=== PATIENT | male | born 1965 | race Caucasian/White ===

== ENCOUNTER → 2020-12-13 07:39 | Outpatient (CLI) | payer OTHER, SELFPAY ==
--- NOTE | ~2020-12-13 | US_ITS ---
EXAMINATION: US abdomen complete EXAM DATE: 12/13/2020 08:14 INDICATION: Acute abdominal pain. TECHNIQUE: Multiple grayscale and Doppler images of the complete abdomen were obtained (by a technolo gist who performed the scan) and subsequently reviewed. There is no prior study for comparison. FINDINGS: The abdominal aorta is normal in caliber. Visualized portion IVC is patent. The pancreatic head a nd body are normal in appearance. The pancreatic tail is not visualized. The liver has normal echogenicity and contour. There are no focal liver lesions identified. There is no evidence of intrahepatic biliary duct dilation. Portal venous flow was seen in the hepatopedal , normal direction and has normal Doppler waveform. Common bile duct measures 3 mm, which is normal. The gallbladder wall is normal in thickness, with ex pected amount of distention. No sonographic evidence of pericholecystic fluid. There is no cholelit hiases. Technologist performing exam reports patient did not demonstrate sonographic Clifford's sign. Please note that this sign is less reliable in patients who have received pain medication. Right kidney: There is normal contour and echogenicity. It measures 11.6 x 5.3 x 6.3 centimeters. There are no focal renal lesions identified. There is no hydronephrosis. Left kidney: There is normal contour and echogenicity. It measures 10.9 x 5.6 x 5.4 centimeters. T here are no focal renal lesions identified. There is no hydronephrosis. The spleen measures 11.7 centimeters and is morphologically normal. IMPRESSION: 1. Unremarkable complete abdominal ultrasound exam. Reviewed, dictated and finalized at location A. RMINATOR HEL[employer]
== END ==
PROVIDERS: PCP Internal Medicine; Visit Provider Internal Medicine
DX: R10.9 Unspecified abdominal pain (principal)
CPT/HCPCS: 76700

== ENCOUNTER → 2021-02-15 08:15 | Outpatient (CLI) | payer OTHER, SELFPAY ==
--- NOTE | ~2021-02-15 | CT_ITS ---
EXAMINATION: CT abdomen pelvis w con EXAM DATE: 02/15/2021 08:51 INDICATION: Low abd pain, screening for mal prostate. TECHNIQUE: Spiral CT of the abdomen and pelvis was performed following intravenous injection of 100 m L Omnipaque 350. Axial, coronal and sagittal images were reviewed. The dose-length product (DLP) fo r this examination was 587.53 mGy-cm. The exposure was tailored according to patient size (auto mA e xposure control), and iterative reconstruction (ASIR) was used as additional dose reduction technique . There is no prior study for comparison. FINDINGS: There is rafael mesentery appearance, a nonspecific finding but most commonly caused by infi ltration with inflammatory cells, chronic mesenteric panniculitis. No pathologically enlarged lymph n odes to suggest lymphoma/malignancy, or thrombosed vessels to suggest edema. The liver, spleen, adrenal glands and pancreas are unremarkable. Gallbladder is unremarkable. No bi liary obstruction. Portal and splenic veins are patent. Kidneys enhance symmetrically. There is no hydronephrosis. The prostate is unremarkable. The bladder is unremarkable. There is no retroperi toneal or pelvic lymphadenopathy. There is mild scattered arteriosclerotic disease. The appendix is normal. The stomach and small bowel are unremarkable. There is expected amount of c olonic stool. No free intraperitoneal gas. The heart is normal in size. There are no pericardial or pleural effusions. There are 2 right lower lobe granulomas. There are no osteoblastic or osteol ytic lesions identified. IMPRESSION: 1. No acute intra-abdominal findings. 2. Rafael mesentery. Most likely mesenteric panniculitis. Reviewed, dictated and finalized at location A.
== END ==
PROVIDERS: PCP Internal Medicine; Visit Provider Internal Medicine
DX: R10.9 Unspecified abdominal pain (principal); Z12.5 Encounter for screening for malignant neoplasm of prostate
CPT/HCPCS: 74177; Q9967

== ENCOUNTER 2021-02-24 16:17 | Outpatient (CLI) | payer OTHER, SELFPAY ==
[2021-02-24 16:58] LABS: Hematocrit 41.2 % (42.0-52.0); Hemoglobin 13.9 g/dL (14.0-18.0); Mean Corpuscular HGB Conc 33.7 g/dl (32-36); Mean Corpuscular Hemoglobin 30.5 pg (26-34); Mean Corpuscular Volume 90.5 fl (80-100); Mean Platelet Volume 9.6 fl (7.4-10.4); Platelet Count Result 304 k/mm3 (150-375); Red Blood Count 4.55 M/mm3 (4.6-6.20); Red Cell Distribution Width 11.9 % (11.5-14.5); White Blood Count 8.3 K/mm3 (4.5-10.0)
[2021-02-24 17:12] LABS: Alanine Aminotransferase 38 U/L (4-50); Albumin Level 4.5 g/dL (3.5-5.1); Alkaline Phosphatase 78 U/L (38-126); Anion Gap 4 mmol/L (8-16); Aspartate Amino Transferase 42 U/L (17-59); Bilirubin,Total 0.4 mg/dL (0.2-1.3); Blood Urea Nitrogen 21 mg/dL (9-20); CRP < 0.5 mg/dL (<1.0); Calcium 9.3 mg/dL (8.4-10.2); Carbon Dioxide 30 mmol/L (22-30); Chloride 104 mmol/L (98-107); Estimated Glomerular Filt Rate > 60; Glucose 96 mg/dL (75-110); Lactate Dehydrogenase 428 U/L (313-618); Potassium 4.2 mmol/L (3.4-5.0); Sodium 138 mmol/L (137-145)
[2021-02-24 17:40] LABS: Erythrocyte Sedimentation Rate 19 mm/hr (0-20)
== END 2021-02-24 16:18 | disposition home or self-care (01) ==
LOC: ANHLAB 16:20
PROVIDERS: PCP Internal Medicine; Visit Provider Nurse Practitioner Family
DX: R93.5 Abnormal findings on diagnostic imaging of other abdominal regions, including retroperitoneum (principal)
CPT/HCPCS: 36415; 80053; 83615; 85027; 85652; 86038; 86140

== ENCOUNTER 2021-03-02 07:34 | Outpatient (CLI) | payer OTHER, SELFPAY ==
--- NOTE | ~2021-03-02 | XR_ITS ---
EXAMINATION: XR small bowel follow through EXAM DATE: 03/02/2021 10:42 INDICATION: K65.4 - Sclerosing mesenteritis, low abdominal pain for months. Abnormal CT. TECHNIQUE: [employer] Developer radiograph was acquired. Small bowel series was performed with thin barium solutio n. Spot images of the terminal ileum were acquired. Pulsed dose reduction fluoroscopy was used with fluoroscopic time of 0.1 minutes. A total of 22 images obtained for the exam. The DAP for this proc edure was 24 Gycm2. FINDINGS: Ileal and jejunal fold patterns are normal. There is no small bowel wall thickening or m ass effect displacing small bowel. There are no intraluminal filling defects identified. There is n o small bowel dilation. Terminal ileum is normal in appearance. Contrast reached the colon between 2 and 2 1/2 hours without evidence of obstruction. IMPRESSION: Unremarkable small bowel exam. Reviewed, dictated and finalized at location A.
== END 2021-03-02 07:35 | disposition home or self-care (01) ==
PROVIDERS: PCP Internal Medicine; Visit Provider Nurse Practitioner Family
DX: K65.4 Sclerosing mesenteritis (principal)
CPT/HCPCS: 74250

== ENCOUNTER 2021-03-13 16:15 | Outpatient (CLI) | payer OTHER, SELFPAY ==
[2021-03-13 16:35] LABS: Add Urine Microscopic? NO; Appearance Urine Clear (Clear); Bilirubin Urine Negative (Negative); Blood Urine Negative (Negative); Color Urine Straw (Yellow); Glucose Urine UA Negative (Negative); Ketones Urine Negative (Negative); Leukocyte Esterase Ur Negative LEU/UL (NEGATIVE); Nitrate Urine Negative (Negative); Protein Urine Negative (Negative); Urobilinogen Urine Negative mg/dL (<2.0)
[2021-03-13 16:37] LABS: Specific Grav Ur 1.004 (1.001-1.035)
== END 2021-03-13 16:16 | disposition home or self-care (01) ==
LOC: ANHLAB 16:17
PROVIDERS: PCP Internal Medicine; Visit Provider Nurse Practitioner Family
DX: R10.30 Lower abdominal pain, unspecified (principal)
CPT/HCPCS: 81003

== ENCOUNTER → 2021-03-17 02:06 | Outpatient (CLI) | payer OTHER, SELFPAY ==
[2021-03-17 19:12] LABS: SARS-CoV-2 RNA PCR Negative
== END ==
PROVIDERS: PCP Internal Medicine; Visit Provider Internal Medicine Gastroenterology
DX: Z01.812 Encounter for preprocedural laboratory examination (principal); Z20.822 Contact with and (suspected) exposure to COVID-19
CPT/HCPCS: C9803; U0003; U0005

== ENCOUNTER 2021-03-20 01:49 | Day surgery (SDC) | payer OTHER, SELFPAY ==
[2021-03-13 09:58] VITALS: BMI 25.5
--- NOTE | 2021-03-19 12:13 | WPDANESEPP ---
Anes - Eval Pre Procedure Procedure: Operation Date: 03/20/21 07:30 Proposed Procedures p Colonoscopy - Drew Chua MD Date/Time: 03/19/21 12:13 Pre Op Diagnosis: low abdominal pain Patient Data Age: 55 Gender: M Height: 1.8 m Weight: 83.1 kg Allergies Allergy/AdvReac Type Severity Reaction Status Date / Time No Known Allergies Allergy Unverified 03/13/21 09:56 Home Medications Medication Instructions Recorded Confirmed Type duloxetine 60 mg capsule,delayed 60 mg PO DAILY 01/12/21 03/13/21 History release gabapentin 400 mg capsule 400 mg PO BID 01/12/21 03/13/21 History rosuvastatin 10 mg tablet 10 mg PO DAILY 01/12/21 03/13/21 History omeprazole 20 mg capsule,delayed 20 mg PO DAILY #30 cap 01/13/21 03/13/21 Rx release dicyclomine 10 mg capsule 10 mg PO TID PRN #90 cap 02/10/21 03/13/21 Rx Patient hx anesthesia problems: none Family hx anesthesia problems: none PMFSH Past Medical History Medical History Abdominal pain Abnormal abdominal CT scan Idiopathic neuropathy Mesenteric panniculitis Social History Social History Smoking status: Never smoker Alcohol intake: never Substance use: never Substance use type: does not use Gender identity (if verbalized by the patient): Male Spiritual care concerns: No Exam Day of Procedure 03/19/21 12:13
[2021-03-20 06:21] VITALS: BMI 24.5
[2021-03-20] MEDS: LACTATED RINGERS 1,000 ML 150 ML IV CONT (07:03)
--- NOTE | 2021-03-20 07:09 | WPDANESEPPF ---
Anes - Initial Pre Proc Eval Procedure: Operation Date: 03/20/21 07:30 Proposed Procedures p Colonoscopy - Drew Chua MD Date/Time: 03/20/21 07:09 Surgeon: Drew Chua MD Pre Op Diagnosis: low abdominal pain Patient Data Age: 55 Gender: M Height: 5 ft 11 in Weight: 79.7 kg Allergies Allergy/AdvReac Type Severity Reaction Status Date / Time No Known Allergies Allergy Verified 03/20/21 06:17 Home Medications Medication Instructions Recorded Confirmed Type duloxetine 60 mg capsule,delayed 60 mg PO DAILY 01/12/21 03/20/21 History release gabapentin 400 mg capsule 400 mg PO BID 01/12/21 03/20/21 History rosuvastatin 10 mg tablet 10 mg PO DAILY 01/12/21 03/20/21 History omeprazole 20 mg capsule,delayed 20 mg PO DAILY #30 cap 01/13/21 03/20/21 Rx release dicyclomine 10 mg capsule 10 mg PO TID PRN #90 cap 02/10/21 03/20/21 Rx Patient hx anesthesia problems: none Family hx anesthesia problems: none [facility] Past Medical History Medical History Abdominal pain Abnormal abdominal CT scan Idiopathic neuropathy Mesenteric panniculitis Social History Social History Smoking status: Never smoker Alcohol intake: never Substance use: never Substance use type: does not use Living arrangements: with family Gender identity (if verbalized by the patient): Male Spiritual care concerns: No Anes - Eval Final PreProcedure Day of Procedure 03/20/21 07:09 Patient weight: normal Heart: regular rate and rhythm Lungs: clear to auscultation Airway: Mallampati scale class II Neurological: alert and oriented Last oral intake: >/= 8 hours ASA classification: II Emergent: no Anesthetic plan: proceed Anesthesia type and monitoring: general GIVS and standard monitoring Informed Consent: The patient's anesthetic plan and its attendant risks and benefits were discussed with the patient/family/POA. Questions were solicited and answers provided to the satisfaction of the patient/family/POA.
[2021-03-20 07:31] VITALS: BP 116/72; PULSE 85; RESP 18; TEMP 36.1; O2SAT 98
--- NOTE | 2021-03-20 07:47 | PM.HPGS ---
History of Present Illness History of Present Illness Consent: Risks, benefits, and alternatives have been discussed and questions answered. Patient agrees to proceed with procedure. Chief complaint: low abdominal pain Narrative: Buck Galindo is a 55 year old male with history of lower abdominal discomfort and bloating that radiates up to mid-abdomen times one year, ultrasound normal, last colonoscopy 2017. CT scan showed possible rafael mesentery. Most likely mesenteric panniculitis. SBFT normal. No diarrhea. Review of Systems Constitutional: Constitutional: Denies headache(s) and Denies weakness Eyes: Eyes: Denies blurry vision ENT: Reports Normal hearing present, Denies headache(s) and Denies neck pain Cardiovascular: Cardiovascular: Denies chest pain and Denies dyspnea Respiratory: Respiratory: Denies dyspnea Gastrointestinal: Gastrointestinal: Reports no additional gastrointestinal complaints Genitourinary: Genitourinary: Denies dysuria Musculoskeletal: Musculoskeletal: Denies neck pain Integumentary/Breasts: Skin/Breast: Denies dry skin Neurologic: Reports Normal hearing present, Denies headache(s) and Denies weakness Psychiatric: Psychiatric: Denies anxiety Endocrine: Endocrine: Denies change in body appearance Hematologic/Lymphatic: Hematologic/Lymphatic: Denies easy bleeding Allergic/Immunologic: Allergic/Immunologic: Denies urticaria PMFSH Past Medical History Medical History (Updated 03/20/21 @ 07:49 by Drew Chua MD) Abdominal pain Abnormal abdominal CT scan Idiopathic neuropathy Lower abdominal pain Mesenteric panniculitis Social History Social History Smoking status: Never smoker Alcohol intake: never Substance use: never Substance use type: does not use Living arrangements: with family Gender identity (if verbalized by the patient): Male Spiritual care concerns: No Meds Home Medications and Allergies Home Medications Medication Instructions Recorded Confirmed Type duloxetine 60 mg capsule,delayed 60 mg PO DAILY 01/12/21 03/20/21 History release gabapentin 400 mg capsule 400 mg PO BID 01/12/21 03/20/21 History rosuvastatin 10 mg tablet 10 mg PO DAILY 01/12/21 03/20/21 History omeprazole 20 mg capsule,delayed 20 mg PO DAILY #30 cap 01/13/21 03/20/21 Rx release dicyclomine 10 mg capsule 10 mg PO TID PRN #90 cap 02/10/21 03/20/21 Rx Allergies Allergy/AdvReac Type Severity Reaction Status Date / Time No Known Allergies Allergy Verified 03/20/21 06:17 Vital Signs Vital Signs - 24 hr 03/20/21 07:31 Temperature 97 F L Pulse Rate 85 Respiratory Rate 18 Blood Pressure 116/72 Pulse Oximetry 98 Exam Const: General: comfortable and no acute distress HENMT: General nose exam: Normal nares present Eyes: General: appearance normal, both eyes and all related structures Neck: Neck: no JVD Resp: Auscultation: clear to auscultation bilaterally Cardio: Rate: regular rate Rhythm: regular rhythm GI: Inspection: non-distended GI Palp: Yes Soft to palpation Skin: General skin exam: normal color Neuro: General: gait normal Speech: normal speech Extrem: General: normal to inspection Psych: Mental Status: mental status grossly normal Assessment and Plan Assessment and plan (1) Lower abdominal pain: Code(s): R10.30 - Lower abdominal pain, unspecified Status: Acute Assessment and Plan: colonoscopy
[2021-03-20 07:55] VITALS: BP 103/69; PULSE 64; RESP 22; O2SAT 96
[2021-03-20 08:05] VITALS: BP 105/74; PULSE 67; RESP 20; O2SAT 99
[2021-03-20 08:15] VITALS: BP 117/77; PULSE 58; RESP 14; O2SAT 98
== END 2021-03-20 08:21 | disposition home or self-care (01) ==
PROVIDERS: PCP Internal Medicine; Visit Provider Internal Medicine Gastroenterology
PROC: 0DJD8ZZ Inspection of Lower Intestinal Tract, Via Natural or Artificial Opening Endoscopic (ICD-10-PCS; CPT 45378; principal; 2021-03-20 07:30)
DX: R10.30 Lower abdominal pain, unspecified (principal); K64.8 Other hemorrhoids; K65.4 Sclerosing mesenteritis; R14.0 Abdominal distension (gaseous); G60.9 Hereditary and idiopathic neuropathy, unspecified
CPT/HCPCS: 45378; C9803; J2001; J2704; J7120; U0003; U0005

== ENCOUNTER 2021-08-22 08:10 | Outpatient (CLI) | payer OTHER, SELFPAY ==
--- NOTE | ~2021-08-22 | US_ITS ---
EXAMINATION: US art doppler w antolin MAX EXAM DATE: 08/22/2021 08:51 INDICATION: Right leg pain. Lateral leg pain when sitting. TECHNIQUE: Segmental pressures and plethysmographic and Doppler waveforms of the brachial and lower e xtremity arteries were obtained. There is no prior study for comparison. FINDINGS: Right and left brachial artery pressures of 119 mm Hg and 118 mm Hg, respectively, are concordant (no rmal difference <= 30 mmHg). The right and left thigh-brachial pressure indices are 1.17 and 1.31, r espectively (normal > 1.2). RIGHT LEG: The ankle-brachial index (DEANGELO) is 1.21 (normal >= 0.9-1). The great toe-brachial index (TBI) is 1.13 (normal >= 0.65). The lower extremity ratios, segmental pressure gradients as follows; Proximal superficial femoral artery:- 1.17 (139 mmHg). Distal superficial femoral artery: ----- 1.18 (140 mmHg). Popliteal: 1.34 (159 mmHg). Dorsalis pedis: 1.21 (144 mmHg). Posterior tibial: 1.21 (144 mmHg). (Normal gradients <= 20-30 mmHg between adjacent levels on the same leg or the same levels on the two legs). Arterial waveforms are biphasic. LEFT LEG: The ankle-brachial index (DEANGELO) is 1.31 (normal >= 0.9-1). The great toe-brachial index (TBI) is 0.99 (normal >= 0.65). The lower extremity ratios, segmental pressure gradients as follows; Proximal superficial femoral artery:- 1.31 (156 mmHg). Distal superficial femoral artery: ----- 1.18 (141 mmHg). Popliteal: 1.49 (177 mmHg). Dorsalis pedis: 1.14 (136 mmHg). Posterior tibial: 1.31 (156 mmHg). (Normal gradients <= 20-30 mmHg between adjacent levels on the same leg or the same levels on the two legs). Arterial waveforms are biphasic. IMPRESSION: 1. Right ankle-brachial index 1.21, normal. 2. Left ankle-brachial index 1.31, normal. 3. Segmental pressures as above. Reviewed, dictated and finalized at location A.
== END 2021-08-22 08:11 | disposition home or self-care (01) ==
LOC: ANHIMG 08:12
PROVIDERS: PCP Internal Medicine; Visit Provider Nurse Practitioner
DX: M54.59 Other low back pain (principal); M79.661 Pain in right lower leg
CPT/HCPCS: 93923

== ENCOUNTER → 2021-08-22 17:08 | Outpatient (CLI) | payer OTHER, SELFPAY ==
--- NOTE | ~2021-08-22 | MR_ITS ---
EXAMINATION: MR lumbar spine wo [facility] EXAM DATE: 08/22/2021 18:23 INDICATION: Pain in low back Pain in Lower Spine. TECHNIQUE: Multi-sequential, multiplanar MR images of the lumbar spine were obtained without contrast . Sagittal T1, T2, T2 fat saturation images. Axial T2 weighted images. There is no prior study for comparison. FINDINGS: Mild disc disease L2-S1, but with height maintained. Small annular fissure L5-S1. The conus medullaris terminates at the T12-L1 level and has normal signal intensity and morphology. There are no suspicious marrow signal abnormalities. The vertebral bodies are aligned in the AP dimension. Par aspinal soft tissue is unremarkable. Level by level evaluation: T12-L1: Disc does not extend beyond the endplate margin. Facet arthropathy: Minimal. Neural foraminal stenosis: No stenosis. Central canal stenosis: No stenosis. L1-L2: Disc does not extend beyond the endplate margin. Facet arthropathy: Minimal. Neural foraminal stenosis: No stenosis. Central canal stenosis: No stenosis. L2-L3: There is a mild diffuse disc bulge. Facet arthropathy: Mild. Neural foraminal stenosis: Minimal bilateral. Central canal stenosis: No stenosis. L3-L4: There is a mild diffuse disc bulge. Facet arthropathy: Mild. Neural foraminal stenosis: Mild to moderate . Central canal stenosis: No stenosis. L4-L5: There is a mild diffuse disc bulge. Facet arthropathy: Mild bilateral . Neural foraminal stenosis: Mild to moderate bilateral. Central canal stenosis: No stenosis. L5-S1: There is a mild diffuse disc bulge. Facet arthropathy: Mild to moderate right, mild left. Neural foraminal stenosis: Mild to moderate right, mild left. Central canal stenosis: Mild. IMPRESSION: Overall mild lumbar spondylosis. Reviewed, dictated and finalized at location A.
== END ==
PROVIDERS: Visit Provider Nurse Practitioner
DX: M47.817 Spondylosis without myelopathy or radiculopathy, lumbosacral region (principal); M48.07 Spinal stenosis, lumbosacral region; M47.815 Spondylosis without myelopathy or radiculopathy, thoracolumbar region; M48.05 Spinal stenosis, thoracolumbar region
CPT/HCPCS: 72148

== ENCOUNTER → 2021-10-23 16:14 | Outpatient (CLI) | payer OTHER, SELFPAY ==
--- NOTE | ~2021-10-23 | XR_ITS ---
EXAMINATION: XR finger 4th LT min 2V EXAM DATE: 10/23/2021 16:50 INDICATION: Mallet finger of left finger(s) . Unable to bend finger. TECHNIQUE: Left 4th finger frontal, lateral and oblique projections obtained and reviewed. There i s no prior study for comparison. FINDINGS: There is flexion at the left 4th distal interphalangeal joint, hyperextension at the proxi mal interphalangeal joint. There is suspicion of an avulsion fracture at the dorsal plate of the dist al phalanx, with retraction to the proximal side of the distal interphalangeal joint. Could be subacu te, reportedly symptoms developed after bending injury 8 weeks ago. This finding has been indicated, marked on the examination for review, clinical correlation. IMPRESSION: Probable left 4th distal phalangeal dorsal plate avulsion, disruption of the extensor me chanism. Reviewed, dictated and finalized at location A. R [employer]ANT [employer]LECT[employer]ICIAN IMPRESSION: Probable left 4th distal phalangeal dorsal plate avulsion, disrupt ion of the extensor mechanism.
== END ==
PROVIDERS: PCP Internal Medicine
DX: M20.012 Mallet finger of left finger(s) (principal)
CPT/HCPCS: 73140

== ENCOUNTER 2021-10-24 09:07 | Outpatient (CLI) | payer OTHER, SELFPAY ==
--- NOTE | 2021-10-24 11:00 | NEURO_ITS ---
Impression: # Complains of calf and feet pain. History of tarsal tunnel release. # Decreased amplitude of bilateral tibial nerves. # Bilateral sural neuropathy. # Normal needle/EMG exam without neurogenic changes. # Higher involvement needs to be ruled out. Nerve Conduction Studies Anti Sensory Summary Table Stim Site NR Peak (ms) P-T Amp (?V) Site1 Site2 Delta-P (ms) Dist (cm) Brigido (m/s) Left Sup Fibular Anti Sensory (Ant Lat Mall) 14 cm 3.3 5.4 14 cm Ant Lat Mall 3.3 16.0 48 Right Sup Fibular Anti Sensory (Ant Lat Mall) 14 cm 3.3 33.7 14 cm Ant Lat Mall 3.3 16.0 48 Left Sural Anti Sensory (Lat Mall) Calf 4.7 17.9 Calf Lat Mall 4.7 16.0 34 Right Sural Anti Sensory (Lat Mall) Calf 4.9 7.7 Calf Lat Mall 4.9 16.0 33 Motor Summary Table Stim Site NR Onset (ms) O-P Amp (mV) Site1 Site2 Delta-0 (ms) Dist (cm) Brigido (m/s) Left Lateral Plantar Motor (ADM) Med Mall 4.4 0.0 Right Lateral Plantar Motor (ADM) Med Mall 4.5 0.2 Left Peroneal Motor (Vastus Med) Ankle 4.8 2.5 Popit Ankle 10.0 43.0 43 Popit 14.8 1.5 Right Peroneal Motor (Vastus Med) Ankle 5.0 2.4 Popit Ankle 10.1 41.0 41 Popit 15.1 1.5 Left Tibial Motor (Abd Simms Brev) Ankle 4.9 1.8 Knee Ankle 11.0 45.0 41 Knee 15.9 0.9 Right Tibial Motor (Abd Simms Brev) Ankle 4.6 0.4 Knee Ankle 10.4 45.0 43 Knee 15.0 0.6 F Wave Studies NR F-Lat (ms) L-R F-Lat (ms) Left Peroneal (Mrkrs) (EDB) 58.84 0.70 Right Peroneal (Mrkrs) (EDB) 59.54 0.70 Left Tibial (Mrkrs) (Abd Hallucis) 59.23 0.64 Right Tibial (Mrkrs) (Abd Hallucis) 59.87 0.64 EMG Side Muscle Nerve Root Ins Act Fibs Amp Dur Recrt Comment Right AntTibialis Dp Br Fibular L4-5 Nml Nml Nml Nml Nml Right Gastroc Tibial S1-2 Nml Nml Nml Nml Nml Right Fibularis Long Sup Br Fibular L5-S1 Nml Nml Nml Nml Nml Right Flex Dig Long Tibial L5-S2 Nml Nml Nml Nml Nml Right Ext Dig Brev Dp Br Fibular L5, S1 Nml Nml Nml Nml Nml Left AntTibialis Dp Br Fibular L4-5 Nml Nml Nml Nml Nml Left Gastroc Tibial S1-2 Nml Nml Nml Nml Nml Left Fibularis Long Sup Br Fibular L5-S1 Nml Nml Nml Nml Nml Left Flex Dig Long Tibial L5-S2 Nml Nml Nml Nml Nml Left Ext Dig Brev Dp Br Fibular L5, S1 Nml Nml Nml Nml Nml MTDD
== END 2021-10-24 09:08 | disposition home or self-care (01) ==
PROVIDERS: PCP Internal Medicine; Visit Provider Nurse Practitioner
DX: M79.661 Pain in right lower leg (principal); M79.662 Pain in left lower leg; G62.9 Polyneuropathy, unspecified
CPT/HCPCS: 95886; 95911